=== PATIENT | female | born 1985 | race Caucasian/White ===

== ENCOUNTER 2024-04-11 08:27 | Outpatient (CLI) | payer BC, SELFPAY ==
--- NOTE | 2024-04-11 08:44 | XR_ITS ---
FINAL REPORT CLINICAL HISTORY: Foot pain, bunions FINDINGS: Left foot Three views were obtained. There is no acute fracture or dislocation. Mild degenerative changes are present. There is mild hallux valgus deformity. No soft tissue abnormality is identified. IMPRESSION: Mild hallux valgus deformity. Reviewed, Interpreted and Dictated by Richie Ireland III, MD Transcribed by Valorie Back Authenticated and [facility]
--- NOTE | 2024-04-11 08:44 | XR_ITS ---
FINAL REPORT CLINICAL HISTORY: Foot Pain, bunions FINDINGS: Right foot Three views were obtained. There is no acute fracture or dislocation. Mild degenerative changes are present. There is mild hallux valgus deformity. No soft tissue abnormality is identified. IMPRESSION: Mild hallux valgus deformity. Reviewed, Interpreted and Dictated by Richie Ireland III, MD Transcribed by Valorie Back Authenticated and [facility][1]
--- NOTE | 2024-04-11 10:46 | ECG_ITS ---
APPROVED REPORT Exam: Resting ECG HR:53 bpm ECG Measurements Heart Rate 53 AXES IA 156 P 68 QRSd 100 QRS 71 QT 452 T -12 QTc 434 Conclusion SINUS BRADYCARDIA INCOMPLETE RIGHT BUNDLE BRANCH BLOCK [90+ ms QRS DURATION, TERMINAL R IN V1/V2, 40+ ms S IN I/aVL/V4/V5/V6] NONSPECIFIC T-WAVE ABNORMALITY ABNORMAL ECG UNCONFIRMED REPORT Electronically signed by : Nikhil Persaud MD 04/12/2024 08:25:31
== END 2024-04-11 23:59 | disposition home or self-care (01) ==
PROVIDERS: Visit Provider Podiatrist
DX: M79.671 Pain in right foot (principal); M79.672 Pain in left foot; Z01.818 Encounter for other preprocedural examination
CPT/HCPCS: 73630; 93005

== ENCOUNTER 2024-04-11 09:19 | Outpatient (CLI) | payer BC, SELFPAY ==
[2024-04-11 11:04] LABS: Basophils # 0.1 K/mm3 (0-0.2); Eosinophils # 0.3 K/mm3 (0.0-0.4); Hematocrit 42.3 % (37.0-47.0); Hemoglobin 13.1 g/dL (12.2-16.2); Lymphocytes # 2.2 K/mm3 (0.7-4.5); Lymphocytes % 34.5 % (10-50); Mean Corpuscular HGB Conc 30.9 g/dL (31.8-35.4); Mean Corpuscular Hemoglobin 31.1 pg (27.0-31.2); Mean Corpuscular Volume 100.6 fl (81-99); Mean Platelet Volume 9.9 fl (7.4-10.4); Monocytes # 0.4 K/mm3 (0.1-1.0); Monocytes % 5.6 % (1.7-9.3); Neutrophils # 3.6 K/mm3 (1.8-7.8); Neutrophils % 54.9 % (37.0-80.0); Platelet Count 261 K/mm3 (142-424); Red Blood Count 4.21 M/mm3 (4.20-5.40); Red Cell Distribution Width 13.3 % (11.5-17.5); White Blood Count 6.5 K/mm3 (4.8-10.8)
[2024-04-11 11:31] LABS: Chloride 104 mmol/L (98-107)
[2024-04-11 11:32] LABS: Albumin Level 4.5 g/dl (3.5-5.0); Potassium 4.2 mmoL/L (3.5-5.1); Sodium 136 mmol/L (136-145)
[2024-04-11 11:35] LABS: Alanine Aminotransferase 18 U/L (12-78); Albumin/Globulin Ratio 1.6 (1.1-1.8); Alkaline Phosphatase 40 U/L (38-126); Anion Gap 8.2 mEq/L (5-15); Aspartate Amino Transferase 24 U/L (14-36); Bilirubin,Total 0.4 mg/dl (0.2-1.3); Blood Urea Nitrogen 23 mg/dl (7-17); Calcium 8.8 mg/dl (8.4-10.2); Carbon Dioxide 28 mmol/L (22.0-30.0); Estimated Glomerular Filt Rate 95 ml/min (>60); GFR (African American) 115 ML/MIN (>60); Globulin 2.9 g/dL (1.3-3.2); Glucose 91 mg/dl (74-100); Total Protein,Serum 7.4 g/dl (6.3-8.2)
[2024-04-22 20:09] LABS: 1,25 Dihydroxy Vitamin D 49 pg/mL (.); 1,25-Dihydroxy, Vitamin D-2 <10 pg/mL (.); 1,25-Dihydroxy, Vitamin D-3 49 pg/mL (.)
== END 2024-04-11 23:59 | disposition home or self-care (01) ==
LOC: LAB.DROPOF 04-13 09:19
PROVIDERS: Visit Provider Podiatrist
DX: Z01.818 Encounter for other preprocedural examination (principal); M20.12 Hallux valgus (acquired), left foot; M21.622 Bunionette of left foot; M77.52 Other enthesopathy of left foot and ankle; M79.672 Pain in left foot; M20.62 Acquired deformities of toe(s), unspecified, left foot
CPT/HCPCS: 36415; 80053; 82652; 85025

== ENCOUNTER 2024-05-11 09:08 | Outpatient (CLI) | payer BC, SELFPAY ==
[2024-05-11] VITALS (7 sets, daily range): BP systolic 103–124; BP diastolic 54–84; PULSE 58–62; RESP 18–95; TEMP 36.6; O2SAT 99–100; BMI 22.1
--- NOTE | 2024-05-11 09:09 | CT_ITS ---
APPROVED REPORT Tower Watchman: CLINICAL INDICATION Chest Pain TECHNIQUE Image Acquisition: A 128 slice MDCT scanner ([employer] Written[employer] View) was used for data acquisition. A noncontrast coronary calcium scan was performed. A CT attenuation threshold of 130 Hounsfield units (HU) was used for the detection of calcium in contiguous voxels of 1 sq mm in area to be counted as individual lesions. Bolus tracking in the ascending aorta with a threshold of 180 HU was performed. Immediately afterwards, ECG synchronized cardiac CT was then performed from the cardiac base to apex using retrospective gating with ECG tube current modulation. A total of 85 mL of Isovue 370 mg/mL contrast medium was administered at 5 mL/sec followed by a saline flush using a biphasic injection protocol. A tube voltage of 120 KVp was used. The patient received the following medications prior to the cardiac CT. 0.8 mg of sublingual nitroglycerin The average heart rate at the time of acquisition was 62 bpm and regular. Image Reconstruction Transaxial images were reconstructed at 0.67 mm slide thickness. Data was reviewed interactively on an advanced workstation capable of 2 and 3-dimensional displays in all conventional reconstruction formats, including multiplanar reformations, maximum intensity projections, curved multiplanar reformations, and volume rendered reconstructions. When applicable, selected routine images describing the relevant coronary anatomy and pathology were saved and sent to PACS. Complications None Technical Quality Overall image quality was good. Coronary artery opacification was adequate. Total DLP (Dose-Length Product) is 1551.8 mGy-cm. The reported value represents the total of one or more individual components during the CT acquisition of this date and at this time, and as such, the same value may appear in more than one CT report depending on the interpreting/reporting physicians. COMPARISON None FINDINGS CT Coronary Calcium Scoring LMA (Left Main Artery) = 0 LAD (Left Anterior Descending) = 0 LCX (Left Coronary Circumflex) = 0 RCA (Right Coronary Artery) = 0 Total Calcium Score = 0 using the AJ-130 method. The interpretation of the calcium heart score is based on the following continuum*: 0 = no calcified plaque detected (risk of coronary artery disease is very low ??? less than 5%) 1-10 = calcium detected in extremely minimal levels (risk of coronary diseases is still low ??? less than 10%) 11-100 = mild levels of plaque detected with certainty (mild or minimal narrowing of heart arteries is likely) 101-400 = definite,at least moderate levels of plaque detected (relatively high risk of a heart attack within 3-5 years) >401-999 = extensive levels of plaque detected (high risk of heart attack, high levels of vascular disease are present, high likelihood of at least one significant coronary narrowing) *The calcium heart score quantifies the burden of coronary calcification/plaque in the coronary arteries. The calcium heart score is not able to evaluate the presence or burden of non-calcified (i.e. soft) plaque. There is no identifiable calcification in the aortic valve, mitral annulus or mitral valve, pericardium, or myocardium. Coronary CT Angiography The coronary arterial system is right dominant. Quantitative Stenosis Grading: Left Main (LM): The left main originates normally from the left sinus of Valsalva. The LM bifurcates into the left anterior descending artery and left circumflex artery. The LM is patent with no evidence of atherosclerosis. Left Anterior Descending (LAD) and Diagonal Branches: The LAD gives off 3 diagonal branch(es). The LAD and its branches are patent with no evidence of atherosclerosis. There is no evidence of LAD-myocardial bridge. Left Circumflex (LCX) and Obtuse Marginals (OM): The LCX gives off 1 Obtuse Marginal (OM) branch(es). The LCX and its branches are patent with no evidence of atherosclerosis. Right Coronary Artery (RCA): The RCA originates normally from the right sinus of Valsalva. The RCA gives off a posterior descending artery (PDA) and posterolateral (PL) branches. The RCA and its branches are patent with no evidence of atherosclerosis. Non-Coronary Cardiac Findings: Analysis of the left ventricular (LV) structure and function was performed after 3-D reconstruction of the LV from axial images, with user-corrected automatic contouring for assessment of LV volumes and user-defined reconstruction from oblique planes for measurement of 3-D cardiac structure and function. -The left ventricle systolic function is normal. -There is no left atrial appendage filling defect. Two right pulmonary veins and two left pulmonary veins drain normally into the left atrium. -No pericardial thickening or calcification. -Central and branch pulmonary arteries in the [id number] are unremarkable. -Thoracic aorta within the visualized thoracic aortic-branches in the [id number] is unremarkable. Extracardiac Structures No significant extra-cardiac findings. Note, however, that this study is focused on the cardiac findings. IMPRESSION -Absence of coronary calcification with an Agatston score = 0 using the AJ-130 method. -No evidence of significant flow-limiting atherosclerosis of the coronary arteries. -No evidence of coronary anomalies or myocardial bridges. -CAD-RADS 0. Management recommendations per ACC/AHA guidelines*, as clinically appropriate. *Recommendations: CAD RADS 0: Reassurance. Consider non-atherosclerotic causes of chest pain. CAD RADS 1: Consider non-atherosclerotic causes of chest pain. Consider preventive therapy and risk factor modification. CAD RADS 2: Consider non-atherosclerotic causes of chest pain. Consider preventive therapy and risk factor modification, particularly for patients with nonobstructive plaque in multiple segments. CAD RADS 3: Consider further functional testing. Consider symptom-guided anti-ischemic and preventive pharmacotherapy as well as risk factor modification per published guideline statements. CAD RADS 4A: Consider further functional testing or invasive coronary angiography with revascularization per published guideline statements. Consider symptom-guided anti-ischemic and preventive pharmacotherapy as well as risk factor modification per published guideline statements. CAD RADS 4B: Invasive coronary angiography recommended with revascularization per published guideline statements. Consider symptom-guided anti-ischemic and preventive pharmacotherapy as well as risk factor modification per published guideline statements. CAD RADS 5: Consider invasive angiography and/or viability assessment with revascularization per published guideline statements. Consider symptom-guided anti-ischemic and preventive pharmacotherapy as well as risk factor modification per published guideline statements. CRITICAL RESULT None COMMUNICATION Per this written report The coronary and cardiac findings of this CCTA were reviewed, reported, and signed by Gideon Mclean MD (Business Process Associate) Conclusion Electronically signed by : Claudia Mclean MD 05/15/2024 12:48:00
[2024-05-11 10:28] LABS: Urine Pregnancy, HCG Qual. Negative (Negative)
[2024-05-11] MEDS: NITROGLYCERIN 0.4MG SL TABLET SL (11:23)
[2024-05-11] MEDS: 0.9 % SODIUM CHLORIDE 50 ML VIAL IV (11:36)
[2024-05-11] MEDS: SODIUM CHLORIDE 0.9% 10ML SYR (RAD ONLY) 10 ML IV (11:36)
[2024-05-11] MEDS: IOPAMIDOL-370 (76%);100ML BOTTLE 85 ML IV (11:37)
== END 2024-05-11 11:43 | disposition home or self-care (01) ==
LOC: RAD 09:09
PROVIDERS: PCP Internal Medicine; Visit Provider Internal Medicine
DX: R94.31 Abnormal electrocardiogram [ECG] [EKG] (principal); Z82.49 Family history of ischemic heart disease and other diseases of the circulatory system
CPT/HCPCS: 75574; 81025; Q9967

== ENCOUNTER 2024-06-06 13:39 | Outpatient (CLI) | payer BC, SELFPAY ==
[2024-06-06 14:35] LABS: Albumin Level 4.7 g/dl (3.5-5.0); Chloride 104 mmol/L (98-107); Sodium 138 mmol/L (136-145)
[2024-06-06 14:36] LABS: Potassium 3.9 mmoL/L (3.5-5.1)
[2024-06-06 14:38] LABS: Alanine Aminotransferase 17 U/L (12-78); Albumin/Globulin Ratio 1.5 (1.1-1.8); Alkaline Phosphatase 34 U/L (38-126); Anion Gap 10.9 mEq/L (5-15); Aspartate Amino Transferase 27 U/L (14-36); Bilirubin,Total 0.3 mg/dl (0.2-1.3); Blood Urea Nitrogen 28 mg/dl (7-17); Carbon Dioxide 27 mmol/L (22.0-30.0); Estimated Glomerular Filt Rate 71 ml/min (>60); GFR (African American) 86 ML/MIN (>60); Globulin 3.1 g/dL (1.3-3.2); Total Protein,Serum 7.8 g/dl (6.3-8.2)
[2024-06-06 14:39] LABS: Calcium 8.9 mg/dl (8.4-10.2); Glucose 96 mg/dl (74-100)
[2024-06-06 14:44] LABS: Basophils # 0.1 K/mm3 (0-0.2); Basophils % 0.7 % (0.1-2.0); Eosinophils # 0.4 K/mm3 (0.0-0.4); Hematocrit 41.2 % (37.0-47.0); Hemoglobin 13.1 g/dL (12.2-16.2); Lymphocytes # 2.7 K/mm3 (0.7-4.5); Lymphocytes % 28.4 % (10-50); Mean Corpuscular HGB Conc 31.7 g/dL (31.8-35.4); Mean Corpuscular Hemoglobin 31.2 pg (27.0-31.2); Mean Corpuscular Volume 98.4 fl (81-99); Mean Platelet Volume 9.1 fl (7.4-10.4); Monocytes # 0.6 K/mm3 (0.1-1.0); Neutrophils # 5.8 K/mm3 (1.8-7.8); Platelet Count 300 K/mm3 (142-424); Red Blood Count 4.18 M/mm3 (4.20-5.40); Red Cell Distribution Width 13.3 % (11.5-17.5); White Blood Count 9.5 K/mm3 (4.8-10.8)
== END 2024-06-06 23:59 | disposition home or self-care (01) ==
LOC: PREOP 13:40
PROVIDERS: Visit Provider Podiatrist
DX: Z01.812 Encounter for preprocedural laboratory examination (principal)
CPT/HCPCS: 80053; 85025

== ENCOUNTER 2024-06-07 08:15 | Day surgery (SDC) | payer BC, SELFPAY ==
[2024-06-06 14:46] LABS: Urine Pregnancy, HCG Qual. Negative (Negative)
[2024-06-07] VITALS (10 sets, daily range): BP systolic 112–136; BP diastolic 65–83; PULSE 58–74; RESP 12–18; TEMP 36.3–43; O2SAT 98–100
--- NOTE | 2024-06-07 | XR_ITS ---
FINAL REPORT CLINICAL HISTORY: Bunionectomy .97 mGy .52 fluoro time FINDINGS: FLUOROSCOPY LESS THAN 1 HOUR HISTORY: Fluoroscopy guidance. FINDINGS: Fluoroscopic guidance was provided for bunionectomy. A single spot film was obtained. A total of 0.52 minutes of fluoroscopy time were used. DAP: 0.97 mGy IMPRESSION: As above. Reviewed, Interpreted and Dictated by Richie Ireland III, MD Transcribed by Ariella Handy Authenticated and . [facility]
[2024-06-07] MEDS: 0.9 % SODIUM CHLORIDE 1000ML 1,000 ML 25 ML IV (08:57)
--- NOTE | 2024-06-07 08:57 | P.PNANES_ITS ---
[facility] Disclaimer: The information contained in this section may have been updated after the patient was seen, as this information can be updated by other users. Medical History No significant past medical history Surgical History No significant past surgical history Family History Mother Cancer Father Coronary artery disease Father Heart attack Hypertension Grandmother Stroke Social History Smoking Status: Never smoker alcohol intake: never substance use type: denies use current occupational status: other details: [employer] Travel in the last 8 weeks: None [facility] Anesthesia Checklist Patient Identification Patient Identification: Arm Band and Verbal (Name & ) Structural Data Admitted From: Home Planned Operative Procedure/s: Tailor bunionectomy Consent for Planned Operative Procedure(s) Verified: Yes Verified Documents: Surgical Consent and History and Physical NPO Status Verified Time NPO: 00:00 Chart Verification Results Verified: HCG Additional verifications Anesthesia Reactions: No Airway Assessment Mallampati Score:: Class II C-Spine Mobility Assessed: Yes TMJ Mobility Assessed: Yes Dentition: Good Dentition Neurological Assessment Level of Consciousness: Awake Hx Seizures: No Numbness or tingling in extremities: No Anesthesia Plan Anesthesia Risk discussed: Yes Anesthesia Plan: Verified ASA Class: I Anesthesia Type: General w/block
[2024-06-07] MEDS: CEFAZOLIN SODIUM 2 GM in 0.9 % SODIUM CHLORIDE 100 ML IV (10:11)
--- NOTE | 2024-06-07 12:17 | P.PNANES_ITS ---
[facility] Anesthesia Record Part I Anesthesia Record I Intake, IV Amount: 1,800 Hydration: Adequate Estimated blood loss (mL): 0 Urine output (mL): 0 Blood Pressure: 121/71 SaO2: 98 Pulse Rate: 67 Airway Patency: Patent Respiratory Rate: 12 Temperature: 97.9 F Patient is:: Awake and Stable Stable to PACU at:: 12:15
--- NOTE | 2024-06-07 12:25 | EXP.OP.NOTE ---
Date of procedure: 06/07/24 Pre-op Diagnosis:: Left hallux valgus, bunion deformity tailor's bunionette 5th hammertoe 5th adductovarus deformity 5th MTPJ bursa Post-op Diagnosis:: Same Procedure performed:: left lapidus bunionectomy tailor bunionectomy/ostectomy 5th met head soft tissue reconstruction angular toe deformity excision of bursa 5th hammertoe PIPJ arthroplasty/partial resection of proximal phalanx calcaneal autograft bone harvest application of posterior splint Surgeon:: Lisbet Galloway DPM CLINICAL BUSINESS ANALYST:: Vince Rae Anesthesia: GETA and regional (left popliteal nerve block) Estimated blood loss (mL): 20 Clinical Note:: Patient is a 38 y/o female who presents with painful bunion deformity. Recent imaging reviewed and shows bunion and bunionette deformity. The patient has tried modification of activity/shoe gear, taping, bunion splint/strapping, toe spacers, inserts, ice, elevation, NSAIDs, stretching. She has custom orthotics from Dr Morejon. After a long discussion with the patient in regards to the conservative versus surgical treatment for the bunion deformity, the patient has elected to proceed with surgery because she has failed conservative treatment and continue to have pain and worsening symptoms affecting daily activities. Discussed MIS bunion surgery vs lapidus bunionectomy, bursa excision and tailor bunionette with correction of 5th toe deformity. The patient has been instructed on the planned procedure, all risk versus benefits of the procedure to include bleeding, infection, nerve and blood vessel damage, need for further surgery, delay in healing of soft tissue or bone, failure of bones to heal, non-union, mal-union, prolonged pain and recovery, prolonged swelling, CRPS/RSD, DVT/PE and anesthetic complications including . Discussed increased risk of wound healing complications and infection due to smoking history. Smoking cessation given. Patient understands if there is wound complications, it could lead to infection warranting oral or IV antibiotics, gangrene necessitating toe amputation. No guarantees were given. All questions fully answered. The patient verbalized understanding and agreed to proceed with surgery. Written consent was obtained. *Lab reviewed and wnl. EKG was abnormal. Patient notified of results. She saw cardiology, had testing and was cleared on 05/11/24. Cardiac clearance granted for foot surgery. Operative findings:: Left hallux valgus deformity. Mild hallux interphalangeus noted. Angular adductovarus rotation deformity to the fifth toe. Fifth hammertoe deformity. Prominent dorsal lateral eminence on the fifth metatarsal head consistent with tailor's bunion. Bursa noted to the fifth MTPJ. No signs of infection. No significant cortical erosions or arthritic deformity noted. Operative note:: On this date and time, the patient was deemed an appropriate surgical candidate. With informed consent signed, the patient was taken to the operating theater after anesthesia did a regional nerve block. The patient was positioned supine. General anesthesia induced. Tourniquet was applied to the mid calf. The left lower extremity was prepped and draped in normal sterile fashion. IV Ancef infused. Left calcaneal autograft bone harvest: Attention was directed to the calcaneus where a an incision was mapped out. Dissection was carried down full-thickness to the level of the bone. Utilizing an autograft bone harvester drill was inserted into the calcaneus and drill. Approximately 5 cc of calcaneus cancellous bone was obtained. Wound was flushed with saline. Nylon used to close the skin. Left Lapidus bunionectomy: Tourniquet was inflated 225 mmHg. Attention directed to the dorsal medial foot where an incision was mapped out over the first metatarsal cuneiform joint. Dissection carried down full-thickness down to the level of the bone with care taken to maintain surgical hemostasis and preserve neurovascular structures. There was arthritic changes noted to the dorsal lateral aspect of the first tarsometatarsal (TMT) joint. First TMT release performed. Attention to is directed to the first interspace where a stab incision was made at the MTP joint just lateral to the EHL tendon. Lateral capsule incised and a complete suspensory ligament release was completed. There was reduction of the hallux valgus deformity noted. Next a pin was inserted dorsal medial parallel to the first TMT joint and the bunion deformity was reduced. Next in standard technique the Lapiplasty 3in1 guide and positioner was inserted into the TMT joint. Intraoperative fluoroscopy was utilized to confirm position. The positioner was tightened and the deformity was reduced. The sesamoids were realigned underneath the first metatarsal head. At this point temporary fixation was inserted. Cut guide applied and bone cuts were made. A rongeur was used to resect excess dorsal spur and spurring from lateral met-cuneiform joint. Next the incision was flushed with copious amounts of normal sterile saline. The joint was then distracted and the joint surfaces were fenestrated with a 2 mm drill fenestrating subchondral bone surfaces. The joint was then compressed and provisional fixation was inserted. The autograft from the calcaneus was inserted to the fusion site. A dorsal lateral Speed plate was placed across the lateral TMT joint. Ronguer used to resect spurring from medial met base and a second Speed plate directly medial along the ridge of the metatarsal across the cuneiform. AP and lateral fluoroscopy views used to confirm position of the fixation. Adequate reduction of the deformity was noted with stable fixation. A splay test was performed and there was no instability noted at the level of the intercuneiform's. There was no gapping at the level of the metatarsal or cuneiforms. Vicryl used to close deep and subcutaneous tissue. Nylon was used to reapproximate skin in an interrupted suture fashion. Left 5th MTPJ bursa excision: A separate incision was made over the dorsal lateral fifth MTPJ. Dissection carried down full thickness. Bursa noted around the joint. 15 blade forceps used to excise bursa. No signs of infection noted. Left tailor's bunionectomy: Excision was extended proximally over the fifth metatarsal head. Dorsal lateral metatarsal prominence was noted. The fifth metatarsal angle was within normal limits so an osteotomy was not warranted. A saw was used to transect the lateral aspect of the metatarsal head. Rongeur was used to remove prominence and hand rasp used to smooth down the edges. Wound was flushed with saline. Vicryl and nylon used to reapproximate tissue and skin. Left fifth hammertoe repair/PIPJ arthroplasty with soft tissue reconstruction of angular toe deformity: Next a separate incision was made over the fifth PIPJ. A derotational skin which was removed over the PIPJ. Dissection through the extensor tendon exposing the PIPJ. Saw was used to transect the head of the proximal phalanx. Rongeur was used to remove distal medial bony prominence from the bone. This was adequate to reduce hammertoe deformity without the need for hardware implant. Wound flushed with saline. Vicryl used to reapproximate extensor tendon. Next the angular toe deformity was the rotated using the skin plasty technique. The skin was repaired with the toe in a more neutral alignment with nylon. Final intraoperative fluoroscopy was utilized to take x-rays which showed bunion, tailor's bunion and fifth toe/metatarsal deformities reduced. Skin was cleansed. Application of posterior splint: Tourniquet had been deflated at 90 minutes and immediate hyperemic response was noted to the digits. Skin was cleansed. Xeroform applied to the dorsal incisions. Betadine soaked gauze used to splint the great toe. A dry sterile dressing was then applied along with a below-knee posterior splint. Patient was awoken from anesthesia and transferred to recovery with vital signs stable. Patient appeared to tolerate procedure and anesthesia well without complication. Materials: [employer] Speed plate x2 Plan: Maintain dressing clean dry and intact to left foot. NWB to LLE in splint with DME. Has rolling knee scooter. Take prescriptions as directed. Polar pack behind the left knee. Postop x-rays. Follow-up outpatient in 1 week. Tourniquet time (min): 90 Condition: stable Disposition: same day Complications:: None
[2024-06-07] MEDS: MORPHINE 2MG/ML SYRINGE 2 MG IV (12:28)
[2024-06-07] MEDS: ONDANSETRON 4MG/2ML VIAL 4 MG IV (12:28)
--- NOTE | 2024-06-07 12:30 | XR_ITS ---
PROCEDURE INFORMATION: Exam: XR Left Foot Exam date and time: 06/07/2024 12:45 PM Age: 38 years old Clinical indication: Pain; Foot; Left; Additional info: Post mellissa palmer bunionectomy TECHNIQUE: Imaging protocol: Radiologic exam of the left foot. Views: 3 or more views. COMPARISON: CR XR FOOT WT BEARING LT 3V 04/11/2024 8:46 AM FINDINGS: Bones/joints: A posterior splint is now present. Status post arthrodesis at the hallux tarsometatarsal joint with normal alignment. Hardware is intact. No acute fracture. Soft tissues: Mild soft tissue swelling IMPRESSION: Normal alignment.
--- NOTE | 2024-06-08 07:28 | EXP.ANES.II ---
[facility] Anesthesia Record Part II Anesthesia Record Part II Discharge Time: 12:45 Destination: Surgical Day Care (OP Surgery) PACU nurse assessment reviewed?: Yes Patient Condition:: Good Anesthesia Complications:: None Swallowing reflex intact?: Yes Airway Patency: Patent Cyanosis?: No Blood Pressure: 124/74 SaO2: 100 Respiratory Rate: 18 Pulse Rate: 73 Temperature: 97.3 F Mental Status: Alert & Oriented Pain level:: 3 Nausea and/or vomitting:: None Intake, IV Amount: 0 Hydration: Adequate
[2024-06-08 07:29] VITALS: BP 124/74; PULSE 73; RESP 18; TEMP 36.3; O2SAT 100
== END 2024-06-07 11:00 | disposition home or self-care (01) ==
PROVIDERS: Visit Provider Podiatrist
PROC: (CPT 28090; principal; 2024-06-07 09:45)
DX: M20.12 Hallux valgus (acquired), left foot (principal); M79.672 Pain in left foot; M21.622 Bunionette of left foot; M20.5X2 Other deformities of toe(s) (acquired), left foot; M71.572 Other bursitis, not elsewhere classified, left ankle and foot
CPT/HCPCS: 28090; 28285; 28297; 28313; 73620; 73630; 76000; 81025; 96374; C1776; J0690; J1100; J1885; J2250; J2270; J2405; J3010; J7030

== ENCOUNTER 2024-07-04 15:18 | Outpatient (CLI) | payer BC, SELFPAY ==
--- NOTE | 2024-07-04 15:21 | XR_ITS ---
FINAL REPORT CLINICAL HISTORY: Post Surgery COMPARISON: 06/07/2024 FINDINGS: Left foot Three views were obtained. The cast has been removed. There are postoperative changes of the first tarsometatarsal joint with screw plate and multiple screws. There are postoperative changes involving the distal aspect of the fifth proximal phalanx. Findings are stable since previous. IMPRESSION: Stable exam. Reviewed, Interpreted and Dictated by Richie Ireland III, MD Transcribed by Valorie Back Authenticated and [facility]
== END 2024-07-04 23:59 | disposition home or self-care (01) ==
LOC: RAD 15:19
PROVIDERS: Visit Provider Podiatrist
DX: Z98.890 Other specified postprocedural states (principal)
CPT/HCPCS: 73630

== ENCOUNTER 2024-07-24 13:48 | Outpatient (CLI) | payer BC, SELFPAY ==
--- NOTE | 2024-07-24 13:52 | XR_ITS ---
FINAL REPORT CLINICAL HISTORY: s/p left foot surgery COMPARISON: 07/04/2024 FINDINGS: LEFT FOOT: Three views show no evidence of acute displaced fracture or dislocation of the visualized bony architecture. Postoperative changes are present of a fusion of the first tarsal metatarsal joint. There has been partial resection of the lateral fifth metatarsal head and the PIP joint of the fifth toe. The joint spaces appear otherwise normal. IMPRESSION: Postoperative changes as above, no acute bony abnormality identified. Reviewed, Interpreted and Dictated by Alysha Gonzáles MD Transcribed by Noelle Elliott Authenticated and . [facility]
== END 2024-07-24 23:59 | disposition home or self-care (01) ==
LOC: RAD 13:50
PROVIDERS: Visit Provider Podiatrist
DX: G89.18 Other acute postprocedural pain (principal)
CPT/HCPCS: 73630

== ENCOUNTER 2024-09-11 10:32 | Outpatient (CLI) | payer OTHER, SELFPAY ==
--- NOTE | 2024-09-11 10:35 | XR_ITS ---
FINAL REPORT CLINICAL HISTORY: Left foot postoperative..pain FINDINGS: LEFT FOOT Three views of the left foot demonstrate no acute fracture or dislocation. There are postoperative changes of the first tarsometatarsal joint and fifth metatarsal head. There has been possible prior bunionectomy. Mild degenerative changes are seen at the first MTP joint.. The soft tissues are unremarkable. IMPRESSION: No acute bony abnormality with postoperative changes as above. Reviewed, Interpreted and Dictated by Alysha Gonzáles MD Transcribed by Lila Ascencio Authenticated and [facility]
== END 2024-09-11 23:59 | disposition home or self-care (01) ==
LOC: RAD 10:33
PROVIDERS: Visit Provider Podiatrist
DX: M79.672 Pain in left foot (principal); Z98.890 Other specified postprocedural states; I89.0 Lymphedema, not elsewhere classified
CPT/HCPCS: 73630